=== PATIENT | female | born 1955 | race Caucasian/White ===

== ENCOUNTER 2018-07-14 17:21 | Inpatient (IN) | payer OTHER ==
[~2018-07-14] VITALS: Ht 157.5 cm; Wt 119.3 kg
--- NOTE | ~2018-07-14 | CON ---
[address] [address] CONSULTATION Name: LAQUITA BROOKS Room: [address] IN .R.#: [id number] Admission: 07/14/18 Attend Phys: Anita Luna Discharge: Date of : 55 Report #: [id number] THIS REPORT FOR: //name// CC: NEHEMIAH physician/PCP Srinivasan Hanson DO Danny Abdi DICTATED BY: Ethel Gutierrez [facility] DATE OF SERVICE: 07/16/2018 Please note at the time of this dictation, the patient was seen and physically examined by myself. REASON FOR CONSULTATION: Abnormal CT stranding in the second portion of the duodenum. HISTORY OF PRESENT ILLNESS: This is a 63-year-old female who presented to the Emergency Room with chief complaint of a groin abscess that she states she has had previously in the past and has been increasing in redness and swelling in the left groin. She became intolerable to this because it was very painful. She had been taking doxycycline as an outpatient, but failed. In further investigating of her symptoms, patient states that she has had some epigastric tenderness and some nausea, which she related all to her abscess. She also has a history of dysphagia, which she has been stretched in the past by [facility] probably 10-12 years ago. She denies anything currently getting stuck, but she does have some difficulty with swallowing and if she is very careful, but is feeling that is needing to be done as well. She denies any NSAID use at this time. She states she had a colonoscopy back in the 90s and was told she had diverticular disease and has not had one since. She states her bowels move daily, soft and formed without any issues. ALLERGIES: BACTRIM. MEDICATIONS: From home include her antibiotic and see her MAR. PAST MEDICAL HISTORY: Type 2 diabetes. 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 FAMILY HISTORY: Mother, uterine cancer. SOCIAL HISTORY: Denies any alcohol, tobacco or illegal drug use at this time. REVIEW OF SYSTEMS: Twelve-point review of systems [place] [address] CONSULTATION Name: LAQUITA BROOKS Room: [address] IN [facility]#: [id number] Admission: 07/14/18 Attend Phys: Anita Luna Discharge: Date of : 55 Report #: [id number] except what is mentioned in the HPI. PHYSICAL EXAMINATION: VITAL SIGNS: Temperature 36.3, pulse 62, respirations 20, blood pressure 130/63. HEART: Regular rate and rhythm. LUNGS: Clear. ABDOMEN: Soft, positive bowel sounds in all 4 quadrants with some slight epigastric tenderness noted to palpation. LABORATORY DATA: Hemoglobin was 12.1, white count is 15, platelets 242,000. GFR is 56. Sodium is a little low at 129 and hemoglobin A1c is 11.8. CT showed some duodenitis or inflammation and stranding in the second portion of the duodenum, otherwise negative. Ultrasound of the abdomen showed fatty liver. IMPRESSION: 1. Nausea. 2. Epigastric pain. 3. Abnormal CT in the second portion of the small intestine. 4. Dysphagia. 5. Leukocytosis. 6. Fatty liver disease. 7. Family history, mother, uterine cancer. 8. History of atrial fibrillation. PLAN: 1. EGD tomorrow with Dr. Schwartz. 2. We will need to hold her aspirin in the a.m. 3. Further recommendations to be made after the procedure. 4. She will need an outpatient colonoscopy given her family history and she has not had one for 20+ years. Thank you for allowing us to participate in this patient's care. Please do not hesitate to call with any questions in regard to this consult. ADDENDUM: I have personally seen and examined the patient and reviewed labs and imaging. The patient with history of nausea, epigastric pain and imaging suggestive of inflammation and thickening of the second portion of the duodenum, who also complains of dysphagia. We will consider upper endoscopy to further evaluate the second portion of the duodenum and address her dysphagia. If her symptoms of nausea and vomiting persist, we will consider a gastric emptying [place] [address] CONSULTATION Name: LAQUITA BROOKS Room: [address] IN [facility]#: [id number] Admission: 07/14/18 Attend Phys: Anita Luna Discharge: Date of : 55 Report #: [id number] patient has long history of diabetes. We will make further recommendation based on finding. By: 1152 0022Ck Schwartz MD /nt
--- NOTE | ~2018-07-14 | PROC ---
[facility] [address] [place] [address] PROCEDURE REPORT Name: LAQUITA BROOKS Room: [address] IN [facility]#: [id number] Admission: 07/14/18 Attend Phys: Anita Luna Discharge: Date of : 55 Report #: [id number] THIS REPORT FOR: //name// For GI report, Please see Provation report in Perceptive 7 content. By: 0826Medical Records Staff RAGINI /LENORE
[2018-07-14 17:32] VITALS: BP 142/89
[2018-07-14] MEDS ORDERED: TRAZODONE HCL50 MG PO (17:35)
[2018-07-14] MEDS ORDERED: ZOLOFT25 MG PO (17:36)
[2018-07-14] MEDS ORDERED: ZOCOR20 MG PO (17:36)
[2018-07-14 17:46] VITALS: BP 176/98
--- NOTE | 2018-07-14 18:20 | NUR ---
PATIENT PRESENTS WITH COMPLAINTS OF A LARGE ABSCESS TO LEFT UPPER THIGH NEAR THE VAGINAL AREA PT STATES IT BEGAN LAST WEEK SMALL AMOUNT OF DRAINAGE DENIES FEVER BUT HAS A LOSS OF APPETITE AND HASN'T EATEN IN SEVERAL DAYS
[2018-07-14 19:14] LABS: HEMOGLOBIN 15.1 gm/dL (12.0-15.0); MCH 28.8 pg (26.0-34.0); MCHC 33.6 g/dL (28.0-37.0); MCV 85.8 fL (80.0-100.0); MPV 10.4 fl. (7.2-11.1); NUCLEATED RBCS 0 /100WBC; PLATELET COUNT* 231 thou/uL (150-400); RBC 5.25 mil/uL (4.20-5.00); RDW-CV 12.6 % (10.5-14.5); WBC 16.1 thou/uL (4.0-11.0)
[2018-07-14 19:26] LABS: CALCIUM 9.5 mg/dL (8.5-10.1); CREATININE 0.5 mg/dL (0.6-1.3); POTASSIUM 4.8 mmol/L (3.5-5.1)
[2018-07-14 19:31] LABS: ALBUMIN 2.7 g/dL (3.4-5.0); TOTAL BILIRUBIN 0.7 mg/dL (<0.1-1.0); TOTAL PROTEIN 8.3 g/dL (6.4-8.2)
[2018-07-14 19:47] VITALS: BP 176/98
[2018-07-14 20:00] VITALS: BP 162/81
--- NOTE | 2018-07-14 20:00 | NUR ---
PT ADMITTED TO FLOOR FROM ER PER CART ACCOMPANIED BY ER STAFF WITH BELONGINGS. AMBULATES FROM CART TO BED WITH SBA. ORIENTED TO ROOM AND CALL LITE. HISTORY OBTAINED AND ASSESSMENT PERFORMED, SEE ADMIT NOTES. PT CO L GROIN AND THIGH PAIN SHOOTING OCC UP INTO ABDOMEN AT 6/10 INTERMITTENTLY. LWRIST IVF PLACED ON PUMP FOR INFUSION. PT REMAINS NPO FOR ABD CT, CT NOTIFIED AND STATES THEY ARE BACKED UP BUT PLAN ON DOING IT TONIGHT, PT AWARE AND VERBALIZES UNDERSTANDING OF NPO. CALL LITE IN EASY REACH, BED ALARM ON FOR SAFETY. WILL CONTINUE TO MONITOR AND PROVIDE CARES NEEDED.
[2018-07-14 20:33] LABS: ABSOLUTE BASOPHILS 0.2 thou/uL (0.0-0.2); ABSOLUTE LYMPHOCYTES 1.9 thou/uL (0.8-5.3); ABSOLUTE MONOCYTES 1.1 thou/uL (0.0-1.2); ABSOLUTE NEUTROPHILS 12.9 thou/uL (1.6-8.1)
[2018-07-14 20:35] LABS: PLATELET ESTIMATE ADEQUATE
[2018-07-15 04:00] VITALS: BP 150/75
[2018-07-15 05:03] LABS: URINE BLOOD NEGATIVE (Negative); URINE CLARITY SL CLOUDY; URINE COLOR YELLOW; URINE GLUCOSE-RANDOM 2+ (Negative); URINE LEUKOCYTES-REFLEX NEGATIVE (Negative); URINE NITRITE-REFLEX NEGATIVE (Negative); URINE PROTEIN TRACE (Negative); URINE SPECIFIC GRAVITY >= 1.030 (1.005-1.030)
[2018-07-15 05:04] LABS: ICTOTEST (BILI CONFIRMATORY) Negative (Negative); URINE BILIRUBIN 2+ (Negative); URINE KETONES 3+ (Negative)
--- NOTE | 2018-07-15 05:24 | NUR ---
NEW ADMIT THIS SHIFT. AOX4, ABLE TO USE CALL LITE AND MAKE NEEDS KNOWN. UP WITH SBA TO BR TO VOID OVERNIGHT, UA SENT TO LAB. LWRIST IVF INFUSING PER PUMP, ABX GIVEN. RECEIVING ZOFRAN FOR NAUSEA WITH FAIR RESULTS. DRSG INTACT O L GROIN I&D SITE, PICS TAKEN. ACCUCHECK 220, PT NPO AWAITING CT ABDOMEN, ORAL SWABS GIVEN FOR COMFORT. VSS. ABLE TO USE CALL LITE AND MAKE NEEDS KNOWN.
[2018-07-15 09:48] VITALS: BP 147/79
--- NOTE | 2018-07-15 10:29 | EKG ---
[place] [address] ELECTROCARDIOGRAM REPORT Name: LAQUITA BROOKS Room: [address] ADM IN [facility]#: [id number] Admission: 07/14/18 Attend Phys: Anita Luna Discharge: Date of : 55 Report #: [id number] THIS REPORT FOR: //name// [facility] ED Test Date: 2018-07-14 Test Time: 19:23:17 Pat Name: LAQUITA CECILIA Department: Room: [facility] Gender: F Blending Supervisor: KAT : 1955 Requested By: Shira Slater Order Number: [id number] MD: Jerson Banegas Measurements Intervals [place] Rate: 90 P: 23 MO: 133 QRS: 2 QRSD: 81 T: 46 QT: 338 QTc: 414 Interpretive Statements Sinus tachycardia Atrial premature complexes in couplets Probable left atrial enlargement Left ventricular hypertrophy Baseline wander in lead(s) V4 No previous ECG available for comparison Electronically Signed On 07-15-2018 10:29:31 CDT by Jerson Banegas [email or web address] <ELECTRONICALLY SIGNED> By: Jerson Banegas MD, FACC 07/15/18 1029 1923 1923 Jerson Banegas MD, [facility] /EPI
--- NOTE | 2018-07-15 10:56 | NUR ---
PATIENT IS ALERT AND ORIENTED TODAY, PLEASANT BUT ANXIOUS AT TINES. COMPLAINTS OF PAIN IN STOMACH, GROIN, AND LEG. ORAL PAIN MEDICATIONS GIVEN AND IT WORKED WELL. EXPLAINED TO PATIENT THAT ORAL NEDICATIONS WILL BE GIVEN FIRST BEFORE IV. PATIENT IS BEING TRANSFERRED TO TELE DUE TO TACHYCARDIA AND IRREGULAR HEART RATE PER PROVIDER. PATIENT LEFT VIA WHEEL CHAIR TO TELE, REPORT CALLED AND GIVEN TO NURSE TAKING PATIENT.
--- NOTE | 2018-07-15 12:41 | NUR ---
RECEIVED REPORT FROM [facility] AND ASSUMED CARE OF PT AT 1100.PT IS A/OX4.TRACING AFIB ON THE MONITOR.IV BOLOUS CARDIZEIM AND DRIP STARTED AND TITRATED PER DR ORDER.EKG DONE.CONTINIOUS VS MONITORED.CELLULITIES PRESENT ON GROIN AREA.IV ANTIBIOTIC AND FLUIDS GIVEN PER ORDER.NPO FOR ABD US.ON RA.ID AND CARDIOLOGY ON BOARD.CALL LIGHT AND FLL PRECAUTIONS IN PLACE .WILL CONTINUE TO MONITOR.
--- NOTE | 2018-07-15 13:41 | EKG ---
[place] [address] ELECTROCARDIOGRAM REPORT Name: LAQUITA BROOKS Room: [address] ADM IN [facility]#: [id number] Admission: 07/14/18 Attend Phys: Anita Luna Discharge: Date of : 55 Report #: [id number] THIS REPORT FOR: //name// [facility] Test Date: 2018-07-15 Test Time: 11:18:22 Pat Name: LAQUITA CECILIA Department: Room: [facility] Gender: F Billing Manager: [id number] : 1955 Requested By: Mally Cody Order Number: [id number] Shakira MD: Jerson Banegas Measurements Intervals [place] Rate: 150 P: WI: QRS: 2 QRSD: 82 T: QT: 289 QTc: 457 Interpretive Statements Atrial fibrillation LVH by voltage Nonspecific T abnormalities, lateral leads Baseline wander in lead(s) V5 Compared to ECG 07/14/2018 19:23:17 Sinus tachycardia no longer present Electronically Signed On 07-15-2018 13:40:57 CDT by Jerson Banegas [email or web address] <ELECTRONICALLY SIGNED> By: Jerson Banegas MD, [facility] 07/15/18 1340 1118 1118 Jerson Banegas MD, [facility] /EPI
--- NOTE | 2018-07-15 13:43 | EKG ---
[place] [address] ELECTROCARDIOGRAM REPORT Name: LAQUITA BROOKS Room: [address] ADM IN R.#: [id number] Admission: 07/14/18 Attend Phys: Anita Luna Discharge: Date of : 55 Report #: [id number] THIS REPORT FOR: //name// [facility] Test Date: 2018-07-15 Test Time: 13:14:42 Pat Name: LAQUITA CECILIA Department: Room: [address] Gender: F Signwriter: KITA : 1955 Requested By: Mally Cody Order Number: [id number] Shakira MD: Jerson Banegas Measurements Intervals [place] Rate: 164 P: [place]: QRS: -9 QRSD: 118 T: 259 QT: 262 QTc: 433 Interpretive Statements Atrial flutter with rapid V-rate nonspecific t wave changes Electronically Signed On 07-15-2018 13:43:19 CDT by Jerson Banegas [email or web address] <ELECTRONICALLY SIGNED> By: Jerson Banegas MD, [facility] 07/15/18 1343 1314 Jerson Banegas MD, FACC /EPI
--- NOTE | 2018-07-15 14:13 | NUR ---
Nutrition: Consult for "DM diet." RD went to visit with pt, but pt transferred to room 208. Wt: 221#. Per chart review, pt is noncompliant, cellulitis on thigh. BG 200s, alb 2.7, prealb 7.9. Currently NPO for abd US. RX: IV ABX, SSI. Mild risk. Will follow per protocol.
--- NOTE | 2018-07-15 15:31 | EKG ---
[place] [address] ELECTROCARDIOGRAM REPORT Name: LAQUITA BROOKS Room: [address] ADM IN .R.#: [id number] Admission: 07/14/18 Attend Phys: Anita Luna Discharge: Date of : 55 Report #: [id number] THIS REPORT FOR: //name// [facility] Test Date: 2018-07-15 Test Time: 13:17:23 Pat Name: LAQUITA CECILIA Department: Room: [address] Gender: F Sole Trimmer: KITA : 1955 Requested By: Danny Abdi Order Number: [id number] Reading MD: Jerson Banegas Measurements Intervals [place] Rate: 165 P: 0 WI: QRS: -3 QRSD: 114 T: 264 QT: 258 QTc: 428 Interpretive Statements atrial flutter Abnormal R-wave progression, late transition Nonspecific T abnormalities, lateral leads Compared to ECG 07/15/2018 13:14:42 T-wave abnormality still present Electronically Signed On 07-15-2018 15:31:04 CDT by Jerson Banegas [email or web address] <ELECTRONICALLY SIGNED> By: Jerson Banegas MD, [facility] 07/15/18 1531 1317 1317 Jerson Banegas MD, [facility] /EPI
--- NOTE | 2018-07-15 17:01 | NUR ---
VSS.PT CONVERTED TO SR FROM AFIB.EKG TAKEN ,DR NOTIFIED.CARDIZEM DRIP STOPPED.PT IS A/OX4.US ABD COMPLETED.I & D OF GROIN ABCESS DONE BY SURGERY TEAM.ON RA.IV PATENT AND SALINE LOCKED.HRLY ROUNDING COMPLETED.WILL CONTINUE TO MONITOR.
[2018-07-15 17:27] VITALS: BP 109/60
--- NOTE | 2018-07-15 18:29 | NUR ---
I have reviewed the documentation by REG PERALTA from 0 to 1828 and I concur with it.
[2018-07-15 20:00] VITALS: BP 143/67
[2018-07-16] VITALS (8 sets, daily range): BP systolic 91–153; BP diastolic 47–71
--- NOTE | 2018-07-16 00:15 | NUR ---
ASSUMED PT CARE @ 1930. PT GIVEN PAIN AND INFLAMMATION MEDICATION FOR LEFT GROIN PAIN-EFFECTIVE. PT CURRENTLY RESTING WITH EYES CLOSED. TRACIG RATE CONTROLLED AFIB ON THE MOINTOR. CALL LIGHT IN REACH. HOURLY ROUNDING FOR SAFETY.
[2018-07-16 02:09] LABS: GLYCOHEMOGLOBIN (HGB A1C) 11.8 % (4.8-5.6)
[2018-07-16 05:32] LABS: HEMATOCRIT 36.7 % (37.0-47.0); MCH 28.4 pg (26.0-34.0); MPV 11.4 fl. (7.2-11.1); RBC 4.27 mil/uL (4.20-5.00); RDW-CV 12.7 % (10.5-14.5)
[2018-07-16 05:44] LABS: HEMOGLOBIN 12.1 gm/dL (12.0-15.0)
[2018-07-16 06:07] LABS: CALCIUM 8.7 mg/dL (8.5-10.1); MAGNESIUM 1.8 mg/dL (1.8-2.4); POTASSIUM 3.9 mmol/L (3.5-5.1)
--- NOTE | 2018-07-16 07:20 | NUR ---
CHANGE OF SHIFT BEDSIDE REPORT GIVEN PATIENT SEEN AT BEDSIDE, IN BED ASLEEP ASSUMED PATIENT CARE
--- NOTE | 2018-07-16 07:53 | CON ---
[address] [address] CONSULTATION Name: LAQUITA BROOKS Room: [address] IN .R.#: [id number] Admission: 07/14/18 Attend Phys: Anita Luna Discharge: Date of : 55 Report #: [id number] THIS REPORT FOR: //name// CC: FAM physician/PCP Danny Abdi DATE OF SERVICE: 07/15/2018 ATTENDING PHYSICIAN: Danny Abdi DO. REASON FOR EVALUATION: Left inguinal proximal medial thigh erythrodermic inflammatory eruption with concern about skin and soft tissue infection with abscess. HISTORY OF PRESENT ILLNESS: Chart reviewed, patient examined. This is a 63-year-old woman with diabetes mellitus type 2, who attributes increasing pain and associated rash with inability to keep her left inguinal site clean and dry. She notes she gets frequent skin and soft tissue infection with abscesses at these sites bilaterally. She has diabetes mellitus. This apparently is not controlled well, has had increasing pain. She admits of fevers that "broke." She has had some anorexia with poor p.o. intake. I think she has not eaten really in 6 days. No diarrhea, although she has experienced some nausea. Evaluation noted lactic acid to be elevated at 2.1, repeat was 1.0. Urinalysis showed proteinuria, trace with ketones. CT abdomen and pelvis showed stranding and thickening of the left adductor muscle region margin of the study, stranding on the second portion of duodenum, question of a duodenitis. She was started empirically on therapy with ceftriaxone, vancomycin, did aspirate site. Cultures pending as are blood cultures. She is mildly encephalopathic. Denies significant pulmonary complaints. ALLERGIES: LISTED TO BACTRIM. CURRENT MEDICATIONS: Include enoxaparin, insulin, pantoprazole, tramadol, ceftriaxone, vancomycin, ketorolac, p.r.n. analgesics and antiemetics. 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 SOCIAL HISTORY: Nonsmoker, no ethanol. FAMILY HISTORY: Noncontributory. REVIEW OF SYSTEMS: A 10-point review of systems otherwise unremarkable with the exception noted above in the [place] [address] CONSULTATION Name: LAQUITA BROOKS Room: [address]#: [id number] Admission: 07/14/18 Attend Phys: Anita Luna Discharge: Date of : 55 Report #: [id number] PHYSICAL EXAMINATION: GENERAL: She is in ehxv-zf-icmtigom distress. She is alert. She appears to be somewhat chronically ill, undernourished. VITAL SIGNS: Temperature 98.3, pulse 74, respirations 16, blood pressure 147/79. SKIN: Warm, dry, no rashes. HEENT: Normocephalic. Extraocular muscles intact. NECK: Supple. LUNGS: Diminished, otherwise clear breath sounds. HEART: Irregular, borderline tachycardic. I do not appreciate a murmur. ABDOMEN: Soft, mildly distended. She does have erythrodermic type eruption in the left inguinal site. She is exquisitely tender with at least moderate induration over the medial proximal thigh extending on to the perineal site. LABORATORY DATA: CT as noted above. TSH of 0.590. Prealbumin is 7.9. CBC: White count of 16.1, H and H 15.1 and 45.0, platelets of 231. Electrolytes: Sodium 131, potassium 4.8, chloride 94, bicarbonate is 22, anion gap of 15, BUN and creatinine 14 and 0.5, glucose of 269, albumin of 2.7, total protein of 8.3. LFTs unremarkable. ASSESSMENT: Left inguinal skin and soft tissue infection with apparent abscess, utilize some warm moist heat, try to localize it. Await culture results to have blood samples as well as aspiration from what is described as an abscess and see how she does clinically over the next 24-48 hours. Adjust antimicrobial therapy as dictated. <ELECTRONICALLY SIGNED> By: Ramirez Martin MD 07/16/18 0753 1148 0007Jolarry Martin MD /nt
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
--- NOTE | 2018-07-16 16:43 | 2DMMODE ---
[place] [address] 2 D/M-MODE ECHOCARDIOGRAM Name: LAQUITA BROOKS Room: [address] IN [facility]#: [id number] Admission: 07/14/18 Attend Phys: Danny Abdi Discharge: Date of : 55 Date of Service: 07/16/18 1643 Report #: [id number] THIS REPORT FOR: //name// APPROVED REPORT Study performed: 07/16/2018 10:31:26 EXAM: Comprehensive 2D, Doppler, and color-flow Echocardiogram Patient Location: In-Patient Room #: [facility] Status: routine BSA: 1.99 HR: 73 bpm BP: 130/63 mmHg Rhythm: NSR Other Information Study Quality: Good Indications Atrial Fibrillation 2D Dimensions IVSd: 11.28 (7-11mm) LVOT Diam: 18.65 (18-24mm) LVDd: 46.13 mm PWd: 9.52 (7-11mm) Ascending Ao: 31.47 (22-36mm) LVDs: 28.82 (25-40mm) Aortic Root: 27.96 mm Volumes Left Atrial Volume (Systole) LA ESV Index: 34.20 mL/m2 Aortic Valve AoV Peak Ashish.: 1.49 m/s AO Peak Gr.: 8.89 mmHg LVOT Max P.86 mmHg AO Mean Gr.: 4.42 mmHg LVOT Mean P.17 mmHg LVOT Max V: 1.10 m/s AO V2 VTI: 24.95 cm LVOT Mean V: 0.66 m/s DANIA (VTI): 2.60 cm2 LVOT V1 VTI: 23.71 cm Mitral Valve E/A Ratio: 1.35 MV Decel. Time: 209.27 ms MV E Max Ashish.: 1.11 m/[place] [address] 2 D/M-MODE ECHOCARDIOGRAM Name: LAQUITA BROOKS Room: [address] IN .R.#: [id number] Admission: 07/14/18 Attend Phys: Danny Abdi Discharge: Date of : 55 Date of Service: 07/16/18 1643 Report #: [id number] MV PHT: 60.69 ms MVA (PHT): 3.63 cm2 TDI E/Lateral E': 12.33 E/Medial E': 12.33 Medial E' Ashish.: 0.09 m/s Lateral E' Ashish.: 0.09 m/s Pulmonary Valve PV Peak Ashish.: 1.09 m/s PV Peak Gr.: 4.79 mmHg Tricuspid Valve RAP Estimate: 5.00 mmHg TR Peak Gr.: 26.69 mmHg RVSP: 31.00 mmHg PA Pressure: 31.00 mmHg Left Ventricle The left ventricle is normal size. There is normal LV segmental wall motion. There is normal left ventricular wall thickness. Left ventricular systolic function is normal. LVEF is 55-60%. Transmitral Doppler flow pattern suggests restrictive physiology. Right Ventricle The right ventricle is normal size. The right ventricular systolic function is normal. Atria Left atrium is moderately dilated. Right atrium is mildly dilated. Aortic Valve Mild aortic valve sclerosis. No aortic regurgitation is present. There is no aortic valvular stenosis. Mitral Valve There is mitral annular calcification. Mild mitral regurgitation. No evidence of mitral valve stenosis. Tricuspid Valve The tricuspid valve is normal in structure. Mild tricuspid regurgitation. Mild pulmonary hypertension. Pulmonic Valve The pulmonary valve is normal in structure. There is no pulmonic [place] [address] 2 D/M-MODE ECHOCARDIOGRAM Name: LAQUITA BROOKS Room: [address]#: [id number] Admission: 07/14/18 Attend Phys: Danny Abdi Discharge: Date of : 55 Date of Service: 07/16/18 1643 Report #: [id number] Great Vessels The aortic root is normal in size. IVC is normal in size and collapses >50% with inspiration. Pericardium There is no pericardial effusion. <Conclusion> The left ventricle is normal size. There is normal left ventricular wall thickness. Left ventricular systolic function is normal. LVEF is 55-60%. Transmitral Doppler flow pattern suggests restrictive physiology. Left atrium is moderately dilated. Right atrium is mildly dilated. Mild mitral regurgitation. Mild tricuspid regurgitation. Mild pulmonary hypertension. IVC is normal in size and collapses >50% with inspiration. <ELECTRONICALLY SIGNED> By: Faustino Costa MD, FACC 07/16/18 1643 164 1643 Faustino Costa MD, FACC /INF
--- NOTE | 2018-07-16 16:59 | EKG ---
[place] [address] ELECTROCARDIOGRAM REPORT Name: LAQUITA BROOKS Room: [address] ADM IN .R.#: [id number] Admission: 07/14/18 Attend Phys: Anita Luna Discharge: Date of : 55 Report #: [id number] THIS REPORT FOR: //name// [facility] Test Date: 2018-07-15 Test Time: 15:54:44 Pat Name: LAQUITA CECILIA Department: Room: [address] Gender: F Video Production Specialist: [id number] : 1955 Requested By: Danny Abdi Order Number: [id number] Shakira MD: Faustino Costa Measurements Intervals [place] Rate: 65 P: 11 WA: 140 QRS: 7 QRSD: 86 T: 17 QT: 435 QTc: 453 Interpretive Statements Sinus rhythm Compared to ECG 07/15/2018 13:17:23 Atrial flutter no longer present T-wave abnormality no longer present Electronically Signed On 07-16-2018 16:59:42 CDT by Faustino Costa [email or web address] <ELECTRONICALLY SIGNED> By: Faustino Costa MD, FACC 07/16/18 1659 1554 1554 Faustino Costa MD, [facility] /EPI
[2018-07-17 04:30] VITALS: BP 103/50
--- NOTE | 2018-07-17 04:48 | NUR ---
ASSUMED PT CARE @ 1930. DR CHAVEZ ON UNIT 2 BEGIONNING OF SHIFT. WAS NOTIFIED PT'S SODIUM WAS LOW, BP DROPS DURING THE NIGHT, AND NPO AFTER MIDNIGHT. NS STARTED. PAIN MEDS GIVEN. FOR LEFT GROIN PAIN EFFECTIVE. PT ABLE TO FALL ASLEEP. LEFT GROIN DRESSING DRY AND INACT. CALL LIGHT IN REACH. HOURLY ROUNDING FOR SAFETY.
[2018-07-17 05:41] LABS: HEMATOCRIT 38.7 % (37.0-47.0); HEMOGLOBIN 12.6 gm/dL (12.0-15.0); MCH 28.1 pg (26.0-34.0); MCHC 32.5 g/dL (28.0-37.0); MCV 86.6 fL (80.0-100.0); MPV 11.7 fl. (7.2-11.1); RBC 4.47 mil/uL (4.20-5.00); RDW-CV 12.7 % (10.5-14.5); WBC 13.2 thou/uL (4.0-11.0)
[2018-07-17 05:59] LABS: CALCIUM 8.7 mg/dL (8.5-10.1); POTASSIUM 4.3 mmol/L (3.5-5.1)
[2018-07-17 07:30] VITALS: BP 130/73
[2018-07-17 08:25] VITALS: BP 130/73
--- NOTE | 2018-07-17 09:04 | NUR ---
RECEIVED PT CARE 0700. SHE IS AWAKE/ALERT AND ORIENTED X4. VSS. TRANSMISSION LINE ENGINEER TRACING SR. NPO FOR EGD TODAY. CONSENTS SIGNED AND ON FRONT OF PATIENTS CHART. PRE-OP CHECK LIST ON FRONT OF CHART. PATIENT DENIES ANY SOA. O2 SAT 92% ON ROOM AIR. C/O 10/10 LEFT GROIN PAIN. PRN PAIN MEDICATION GIVEN WITH GOOD RELIEF. SHE IS UP STANDBY ASSIST IN ROOM. GAIT IS STEADY. AM ASSESSMENT CHARTED. MEDS GIVEN PER MAR. CALL LIGHT WITHIN REACH. WILL CONTINUE TO MONITOR.
--- NOTE | 2018-07-17 10:36 | EKG ---
[place] [address] ELECTROCARDIOGRAM REPORT Name: LAQUITA BROOKS Room: [address] ADM IN .R.#: [id number] Admission: 07/14/18 Attend Phys: Anita Luna Discharge: Date of : 55 Report #: [id number] THIS REPORT FOR: //name// [facility] Test Date: 2018-07-17 Test Time: 04:56:43 Pat Name: LAQUITA CECILIA Department: Room: [address] Gender: F Technical Support Technician: : 1955 Requested By: Jerson Banegas Order Number: [id number] Shakira MD: Austin Dalton Measurements Intervals [place] Rate: 63 P: 20 NE: 144 QRS: 30 QRSD: 88 T: 13 QT: 445 QTc: 456 Interpretive Statements Sinus rhythm Compared to ECG 07/15/2018 15:54:44 No significant changes Electronically Signed On 07-17-2018 10:36:00 CDT by Austin Dalton [email or web address] <ELECTRONICALLY SIGNED> By: Austin Dalton MD, [facility] 07/17/18 1036 0456 0456 Austin Dalton MD, FACC /EPI
[2018-07-17 14:35] VITALS: BP 150/78
[2018-07-17 16:00] VITALS: BP 117/56
[2018-07-17 20:00] VITALS: BP 126/69
[2018-07-18] VITALS: BP 164/89
--- NOTE | 2018-07-18 02:29 | NUR ---
PT FINISHED BOWEL PREP. LARGE AMOUNT OF DRAINAGE FROM LEFT GROIN CYST. PAIN MEDICATION GIVEN. TRACING SR ON MONITOR. PT CURRENTLY RESTING IN BED W EYES CLOSED. CALL LIGHT IN REACH. HOURLY ROUNDING FOR SAFETY.
[2018-07-18 05:40] LABS: HEMOGLOBIN 12.3 gm/dL (12.0-15.0); MCH 28.7 pg (26.0-34.0); MCHC 33.2 g/dL (28.0-37.0); MCV 86.4 fL (80.0-100.0); MPV 10.2 fl. (7.2-11.1); RBC 4.28 mil/uL (4.20-5.00); RDW-CV 12.6 % (10.5-14.5); WBC 12.6 thou/uL (4.0-11.0)
[2018-07-18 06:02] LABS: CALCIUM 8.9 mg/dL (8.5-10.1); CREATININE 0.8 mg/dL (0.6-1.3); MAGNESIUM 1.8 mg/dL (1.8-2.4); POTASSIUM 3.9 mmol/L (3.5-5.1)
[2018-07-18 08:00] VITALS: BP 145/67
--- NOTE | 2018-07-18 10:57 | EKG ---
[place] [address] ELECTROCARDIOGRAM REPORT Name: LAQUITA BROOKS Room: [address] ADM IN .R.#: [id number] Admission: 07/14/18 Attend Phys: Anita Luna Discharge: Date of : 55 Report #: [id number] THIS REPORT FOR: //name// [facility] Test Date: 2018-07-18 Test Time: 08:24:31 Pat Name: LAQUITA BROOKS Department: Room: [address] Gender: F Director Of Campus Recreation: : 1955 Requested By: Austin Dalton Order Number: [id number] Shakira MD: Edwin Dos Santos Measurements Intervals [place] Rate: 73 P: 49 MD: 135 QRS: 38 QRSD: 86 T: 0 QT: 386 QTc: 426 Interpretive Statements Sinus rhythm Baseline wander in lead(s) V1 Compared to ECG 07/17/2018 04:56:43 No significant changes Electronically Signed On 07-18-2018 10:56:52 CDT by Edwin Dos Santos [email or web address] <ELECTRONICALLY SIGNED> By: Edwin Dos Santos MD, FACC 07/18/18 1056 Edwin Dos Santos MD, [facility] /EPI
[2018-07-18 11:05] VITALS: BP 145/67
[2018-07-18 11:26] VITALS: BP 116/67
--- NOTE | 2018-07-18 11:32 | NUR ---
RECEIVED REPORT AND ASSUMED CARE OF PT AT 0735.A/OX4.TRACING SR ON THE MONITOR.ON RA.IV PATENT WITH IV ANTIBIOTICS INFUSING PER ORDER.NPO FOR COLONOSCOPY.BLOOD SUGAR MANAGED BY INSULIN PER ORDER.PT IS SITTING ON THE CHAIR.COMPLAINTS OF PAIN ,MANAGED BY MEDS.NO SKIN ISSUES.CALL LIGHT AND FALL PRECAUTIONS IN PLACE.WILL CONTINUE TO MONITOR.
--- NOTE | 2018-07-18 18:00 | NUR ---
VSS.PT IS A/OX4.TRCING SR ON THE MONITOR.IV PATENT WITH IV ANTIBIOTIC INFUSING.COLONOSCOPY COMPLETED WITH ONE POLYP REMOVAL.GI SIGNED OFF.REGULAR DIET RESUMED.WOUND CLEANED AND PACKED AGAIN AFTER PT TOOK SHOWER.BLOOD SUGAR MANAGED PER PROTOCOL.COMPLAINTS OF GROIN AND BACK PAIN.MANAGED WITH MEDS.HRLY ROUNDING COMPLETED.WILL CONTINUE TO MONITOR.
[2018-07-18 19:30] VITALS: BP 149/71
[2018-07-19 00:08] VITALS: BP 119/59
--- NOTE | 2018-07-19 01:35 | NUR ---
ASSUMED CARE OF PT 1899. PT IS ALERT AND ORIENTED. VSS. PERRLA. PT REPORTS ONGOING PAIN IN BACK AND LEFT GROIN. PT IS GETTING HYDROCODONE AND FENTANYL FOR PAIN. PT WENT INTO A FIB AT 1941. RATE VARIED FROM [address] AGUIRRE NOTIFIED. PT WAS GIVEN EXTRA SOTOLOL PER DR AGUIRRE. PT CONVERTED BACK INTO SINUS RYTHM AT 2144. DOCUMENTATION IS IN THE CHART. PT IS SLEEPING QUIETLY IN BED. RESPIRATIONS ARE EVEN AND NONLABORED. WILL CONTINUE TO MONITOR PT.
[2018-07-19 04:21] VITALS: BP 120/66
[2018-07-19 08:13] VITALS: BP 150/65
--- NOTE | 2018-07-19 09:00 | NUR ---
REC'D REPORT FROM NOC RN, ASSUMED CARE OF PATIENT APPROX 0730. A&OX4, ABLE TO COMMUNICATE NEEDS TO STAFF. ASSESSMENT COMPLETE, VS OBTAINED. TELEVISION SCRIPT WRITER IN PLACE, SR. O2 SATS 92% RA. SITTING IN HIGH FOWLERS, WITH LEGS BENT. PATIENT STATES, "I NEED TO STRETCH MY BACK. IT HURTS. CAN YOU HELP ME MOVE MY LEGS?" ASSISTED PATIENT WITH GENTLE STRETCHING. STATES THAT HER BACK PAIN HAS BEEN PARTIALLY RELIEVED WITH THIS STRETCHING. CALL LIGHT WITHIN REACH. HOURLY ROUNDING FOR SAFETY AND PATIENT NEEDS.
--- NOTE | 2018-07-19 11:05 | NUR ---
Pt continues to plan to return home at sc. No needs anticipated.
--- NOTE | 2018-07-19 11:58 | NUR ---
REC'D CALL FROM SEAN DIETITIAN, WHO STATES PATIENT SHOULD BE RECEIVING A CARB CONTROL DIET. ORDERS FOR DIET TO BE CHANGED PER DIETARY.
[2018-07-19 12:36] VITALS: BP 152/79
[2018-07-19 15:39] LABS: ABSOLUTE EOSINOPHILS 0.1 thou/uL (0.0-0.7); ABSOLUTE LYMPHOCYTES 1.2 thou/uL (0.8-5.3); ABSOLUTE MONOCYTES 1.7 thou/uL (0.0-1.2); ABSOLUTE NEUTROPHILS 9.8 thou/uL (1.6-8.1); BASOPHILS 0.2 %; EOSINOPHILS 0.6 %; HEMATOCRIT 38.6 % (37.0-47.0); LYMPHOCYTES 9.7 %; MCH 28.9 pg (26.0-34.0); MCHC 33.6 g/dL (28.0-37.0); MCV 86.1 fL (80.0-100.0); MPV 9.7 fl. (7.2-11.1); NUCLEATED RBCS 0 /100WBC; PLATELET COUNT* 259 thou/uL (150-400); POLYS 76.5 %; RBC 4.48 mil/uL (4.20-5.00); RDW-CV 12.8 % (10.5-14.5); WBC 12.8 thou/uL (4.0-11.0)
[2018-07-19 15:44] LABS: CREATININE 0.8 mg/dL (0.6-1.3); POTASSIUM 4.2 mmol/L (3.5-5.1)
--- NOTE | 2018-07-19 16:06 | PATH ---
[address] [address] PATHOLOGY RPT PROCEDURE Name: MEGHAN BROOKS Room: [address] IN M.R.#: [id number] Admission: 07/14/18 Date of : 55 Discharge: Report #: [id number] Path Case #: [id number] [facility] Accession Number: [id number] . 01 Material submitted: . PART A: duodenum - BIOPSY OF DUODENUM/DUODENAL ULCER PART B: stomach - BIOPSY OF STOMACH PART C: esophagus - DISTAL ESOPHAGUS R/O BARRETTS . 01 Clinical history: . None provided . 02 Diagnosis: A. Biopsy of duodenum/duodenal ulcer: - Non-specific active duodenitis with ulceration, negative for granulomas, viral inclusions and dysplasia/adenomatous change and malignancy. . B. Biopsy of stomach: - Mild chronic gastritis suggesting reactive gastropathy (chemical gastritis), negative for Helicobacter pylori organisms, granulomas and dysplasia. . C. Distal esophagus: - Benign esophageal and gastric/columnar types mucosa with moderate chronic and active inflammation compatible with reflux, negative for goblet cells/diagnostic Wilson's metaplasia, granulomas and dysplasia. ([place]/db; 07/19/2018) LBQ/07/19/2018 . 02 Comment: Special stain on B: H. pylori immuno . 02 Electronically signed: . Rubén Skaggs MD, Pathologist NPI- [id number] . 01 Gross description: . A. Received in formalin labeled "Meghan Brooks, biopsy duodenum/duodenal ulcer," are 4 segments of alfaro soft tissue measuring 0.9 x 0.6 x 0.2 cm in aggregate dimensions and ranging from 0.2 to 0.3 cm in maximum dimension. The specimen is submitted entirely in cassette A1. . B. Received in formalin labeled "Meghan Brooks, biopsy of stomach," are 4 segments of alfaro soft tissue measuring 0.9 x 0.8 x 0.6 cm in aggregate dimensions and ranging from 0.3 to 0.4 cm in maximum dimension. The specimen is submitted entirely in cassette B1. . C. Received in formalin labeled "Meghan Brooks, distal esophagus, [place] [address] PATHOLOGY RPT PROCEDURE Name: MEGHAN BROOKS Room: [address] IN [facility].#: [id number] Admission: 07/14/18 Date of : 55 Discharge: Report #: [id number] Path Case #: [id number] rule out Wilson's," are 2 segments of alfaro soft tissue measuring 0.7 x 0.2 x 0.2 cm in aggregate dimensions and ranging from 0.3 to 0.4 cm in maximum dimension. The specimen is submitted entirely in cassette C1. (TSD; 07/18/2018) TOB/TOB . 02 Pathologist provided ICD-10: K29.80, K26.9, K29.50, K21.9 . 02 CPT . 308757, 552643, 796229, T26261 Specimen Comment: A courtesy copy of this report has been sent to Specimen Comment: [phone], . Specimen Comment: Report sent to / DR GARCIA Performed at: [address], [place], [place] [id number] MD Srinivasan Crow MD Phone: [phone] Performed at: 02 [facility] [address], [place], [place] [id number] MD Rubén Skaggs MD Phone: [phone]
[2018-07-19 16:22] VITALS: BP 154/68
--- NOTE | 2018-07-19 18:00 | NUR ---
PATIENT C/O NAUSEA AND FEELING UNCOMFORTABLE. ONDANSETRON GIVEN WELL ACETAMINOPHEN FOR LOW GRADE FEVER. PATIENT STATES "THOSE MEDS DID HELP," UPON REASSESSMENT. PATIENT C/O LACK OF APPETITE FOR EVENING MEAL. EDUCATION GIVEN R/T ANTIBIOTIC SIDE EFFECTS. PATIENT AND SISTER VERBALIZED UNDERSTANDING. PATIENT IS DISTRESSED ABOUT HER JOB AND HER INSURANCE. ASKED MENDEL GELLER TO VISIT WITH PATIENT TO ASSIST HER WITH THIS PROCESS. PATIENT HAS BEEN UP TO BATHROOM X2 WITH THIS NURSE. AMBULATES WITH PAIN. ABLE TO AMBULATE ON OWN. CALL LIGHT IN REACH. HOURLY ROUNDING FOR SAFETY AND PATIENT NEEDS.
[2018-07-19 19:50] VITALS: BP 122/60
[2018-07-20] VITALS: BP 113/52
--- NOTE | 2018-07-20 03:38 | NUR ---
RECIEVED REPORT AND ASSUMED CARE AT 1900. CLAM DIGGER IN PLACE. VITAL SIGNS ARE STABLE. PT UP WITH ASSIST X 1. PT DENIES ANY PAIN AT THIS TIME. ASSESSMENT COMPLETED DISCUSSED PLAN OF CARE AND PT UNDERSTANDS. BED LOCKED AND CALL LIGHT WITHIN REACH. FALL PRECAUTIONS IN PLACE. HOURLY ROUNDING DONE AND ALL NEEDS MET. NURSING WILL CONTINUE TO MONITOR.
[2018-07-20 04:00] VITALS: BP 111/53
[2018-07-20 05:46] LABS: HEMATOCRIT 35.1 % (37.0-47.0); HEMOGLOBIN 11.5 gm/dL (12.0-15.0); MCH 27.8 pg (26.0-34.0); MCHC 32.9 g/dL (28.0-37.0); MCV 84.6 fL (80.0-100.0); MPV 10.1 fl. (7.2-11.1); RBC 4.15 mil/uL (4.20-5.00); RDW-CV 12.8 % (10.5-14.5); WBC 11.4 thou/uL (4.0-11.0)
[2018-07-20 05:56] LABS: ALBUMIN 1.7 g/dL (3.4-5.0); CALCIUM 8.8 mg/dL (8.5-10.1); CREATININE 0.7 mg/dL (0.6-1.3); MAGNESIUM 1.6 mg/dL (1.8-2.4); POTASSIUM 3.8 mmol/L (3.5-5.1); TOTAL BILIRUBIN 0.3 mg/dL (<0.1-1.0); TOTAL PROTEIN 6.1 g/dL (6.4-8.2)
[2018-07-20 07:50] VITALS: BP 126/67
--- NOTE | 2018-07-20 10:45 | NUR ---
PT ALERT AND ORIENTED. TELE TRACKING NSR AND ALL VSS ON ROOM AIR. C/O LEFT GROIN AND BACK PAIN-MEDICATED PER EMAR. DENIES CP, SOA. LEFT GROIN DRESSING CHANGE BY THIS AM. SURROUNDING AREA WARM/RED. EDUCATED ON SAFETY AND PLAN OF CARE. PLEASE SEE ASSESSMENT FOR ADDITIONAL INFORMATION. WILL CONT TO MONITOR.
[2018-07-20 12:46] VITALS: BP 125/61
--- NOTE | 2018-07-20 14:49 | NUR ---
WAS ASKED TO SEE PT RE: INSURANCE CONCERNS. PT STATED HER SISTER TOOK ALL HER PAPERWORK HOME AND IS ASSISTING HER. PT IS HAVING TO SIGN BACK UP FOR ALL OF HER EMPLOYEE INSURANCE/BENEFITS THRU HER JOB. TOLD HER CM WOULD CHECK WITH HER AGAIN ON SUNDAY TO SEE IF SHE NEEDS ANY ASSIST
[2018-07-20 16:09] VITALS: BP 132/68
--- NOTE | 2018-07-20 16:36 | NUR ---
WOUND RE-PACKED AFTER SHOWER. PT TOLERATED WELL. WILL CONT TO MONITOR
[2018-07-20 19:50] VITALS: BP 136/62
[2018-07-21] VITALS: BP 138/68
--- NOTE | 2018-07-21 02:07 | NUR ---
RECIEVED REPORT AND ASSUMED CARE AT 1900. HOT FRAME TENDER IN PLACE. VITAL SIGNS STABLE. PT UP ADLIB. PT HAS SOME GROIN PAIN AND BACK PAIN AND REPOSITIONING HELPED MANAGE PAIN. ASSESSMENT COMPLETED DISCUSSED PLAN OF CARE AND PT UNDERSTANDS. BED LOCKED AND CALL LIGHT WITHIN REACH. FALL PRECAUTIONS IN PLACE. HOURLY ROUNDING DONE AND ALL NEEDS MET. NURSING WILL CONTINUE TO MONITOR.
[2018-07-21 04:00] VITALS: BP 129/69
[2018-07-21 07:45] VITALS: BP 135/67
[2018-07-21 12:08] VITALS: BP 130/61
--- NOTE | 2018-07-21 14:31 | NUR ---
PT ALERT AND ORIENTED. TELE TRACKING SR AND ALL VSS ON ROOM AIR. DENIES CP, SOA. C/O BACK/LEFT GROIN PAIN-MEDICATED PER EMAR. EDUCATED ON SAFETY AND PLAN OF CARE. PLEASE SEE ASSESSMENT FOR ADDITIONAL INFORMATION. WILL CONT TO MONITOR
[2018-07-21 16:30] VITALS: BP 128/70
[2018-07-21 20:00] VITALS: BP 143/72
--- NOTE | 2018-07-21 20:00 | NUR ---
RECEIVED REPORT AND ASSUMED CARE OF PT, ASSESSMENT COMPLETED. PT RESTING WITH EYES CLOSED, PT STATES NO FURTHER DIARRHEA SINCE ABOUT NOON. DRSG INTACT TO LT GROIN. CORPORATE STAFF ACCOUNTANT SHOWING SR. WILL CONT TO MONITOR AND ASSIST NEEDED.
[2018-07-22 00:20] VITALS: BP 149/76
[2018-07-22 04:00] VITALS: BP 139/70
[2018-07-22 05:30] LABS: HEMOGLOBIN 11.7 gm/dL (12.0-15.0); MCH 28.4 pg (26.0-34.0); MCHC 33.4 g/dL (28.0-37.0); MCV 85.1 fL (80.0-100.0); MPV 9.4 fl. (7.2-11.1); RBC 4.11 mil/uL (4.20-5.00); RDW-CV 12.6 % (10.5-14.5); WBC 8.7 thou/uL (4.0-11.0)
[2018-07-22 05:54] LABS: CALCIUM 8.3 mg/dL (8.5-10.1); CREATININE 0.7 mg/dL (0.6-1.3); MAGNESIUM 1.9 mg/dL (1.8-2.4); POTASSIUM 3.7 mmol/L (3.5-5.1)
--- NOTE | 2018-07-22 05:57 | NUR ---
SLEPT WELL TONIGHT. VERY TALKATIVE. C/O PAIN INTO BACK AND LT THIGH AREA WITH MOVEMENT. PO PAIN MED X1 GIVEN AND EFFECTIVE. ON 07/21 PT WOULD NOT ALLOW WEEKLY PICTURE DOCUMENTATION ON LT GROIN WOUND DUE TO DR ALREADY CHANGED DRSG FOR THE DAY. WILL ATTEMPT TO GET THIS AM WITH DR ROUNDING. TELEMETRY CONT TO SHOW SR TO SB. HS GOALS OF REST AND SAFETY ACHIEVED. HOURLY ROUNDING OBSERVED.
[2018-07-22 08:00] VITALS: BP 137/71
[2018-07-22 10:53] VITALS: BP 137/71
[2018-07-22 10:54] VITALS: BP 137/71
[2018-07-22] MEDS ORDERED: GLUCOTROL5 MG PO (11:39)
[2018-07-22] MEDS ORDERED: TRAMADOL 50 MG50 MG PO (11:39)
[2018-07-22] MEDS ORDERED: AUGMENTIN 875-1 EACH PO (11:39)
[2018-07-22] MEDS ORDERED: HYDROCODON-ACE1 EAC7 PO (11:39)
[2018-07-22] MEDS ORDERED: SORINE 80 MG TA80 M1 PO (11:39)
[2018-07-22] MEDS ORDERED: CARAFATE 1 GM TA1 G1 PO (11:39)
[2018-07-22] MEDS ORDERED: GLUCOPHAGE1000 MG PO (11:39)
[2018-07-22] MEDS ORDERED: PANTOPRAZOLE SO40 M1 PO (11:39)
--- NOTE | 2018-07-22 11:53 | NUR ---
Pt discharging to home today. Faxed HH orders to [facility].
[2018-07-22 12:00] VITALS: BP 143/69
[2018-07-22] MEDS ORDERED: DOXYCYCLINE 10100 MG PO (12:23)
[2018-07-22] MEDS ORDERED: SYNTHROID50 MCG PO (12:24)
--- NOTE | 2018-07-22 14:46 | NUR ---
ASSUMED PT CARE AT 0730, AOX4, SBA, O2 SAT ON 90'S RA. PT COMPLAINS OF L GROIN PAIN, BACK PAIN. PT FOR DISCHARGE TODAY. TRACING SR ON FLOOR NURSE. PT LAST BM 07/21/18, ABDOMEN SOFT ROUND, OBESE. PT FOR ACCU CHECK. PT L GROIN INCISION, CLEANSE, CHANGE PACKING. PT HAD BILATERAL FEET EDEMA. VSS, AM ASSESSMENT CHARTED. MEDS GIVEN PER MAR. HOURLY ROUNDING, CALL LIGHT WITHIN REACH. WILL CONTINUE TO MONITOR.
--- NOTE | 2018-07-22 19:09 | NUR ---
I HAVE REVIEWED AND AGREE WITH THE ASSESMENT AND NOTE OF MISAEL Iyer RN ON 07/22/18 RECIEVED DISCHARGE ORDERS. PT GIVEN DISCHARGE INSTRUCTIONS, SCRIPTS, INSTRUCTED TO FOLLOW UP WITH [facility]. PT VERBALIZED UNDERSTANDING. PT TO HAVE HH ON DC. INSTRUCTED THAT HH WILL CALL HER TO SET UP VISIT. PT COLLECTED ALL BELONGINGS. DISCHARGE VIA WC BY STAFF WITH FAMILY.
== END 2018-07-22 16:15 | disposition home health service (06) | DRG 580 ==
LOC: M.ERS 17:21 → M.2W 18:53 → M.TBA-ER 18:53 → M.ORTHSURG 19:47 → M.2W 07-15 11:01
PROVIDERS: Internal Medicine; Nurse Practitioner Family; ADMIT Internal Medicine
PROC: 0H9AXZZ Drainage of Inguinal Skin, External Approach (ICD-10-PCS; principal; 2018-07-14)
PROC: 0Y960ZZ Drainage of Left Inguinal Region, Open Approach (ICD-10-PCS; 2018-07-15)
PROC: 0DB68ZX Excision of Stomach, Via Natural or Artificial Opening Endoscopic, Diagnostic (ICD-10-PCS; 2018-07-17)
PROC: 0D758ZZ Dilation of Esophagus, Via Natural or Artificial Opening Endoscopic (ICD-10-PCS; 2018-07-17)
PROC: 0DB98ZX Excision of Duodenum, Via Natural or Artificial Opening Endoscopic, Diagnostic (ICD-10-PCS; 2018-07-17)
PROC: 0DB58ZX Excision of Esophagus, Via Natural or Artificial Opening Endoscopic, Diagnostic (ICD-10-PCS; 2018-07-17)
PROC: 0DBN8ZZ Excision of Sigmoid Colon, Via Natural or Artificial Opening Endoscopic (ICD-10-PCS; 2018-07-18)
PROC: 0DBN8ZX Excision of Sigmoid Colon, Via Natural or Artificial Opening Endoscopic, Diagnostic (ICD-10-PCS; 2018-07-18)
DX: L03.314 Cellulitis of groin (principal); Z68.42 Body mass index [BMI] 45.0-49.9, adult; L03.116 Cellulitis of left lower limb; E87.1 Hypo-osmolality and hyponatremia; L02.214 Cutaneous abscess of groin; E66.9 Obesity, unspecified; I49.9 Cardiac arrhythmia, unspecified; E11.65 Type 2 diabetes mellitus with hyperglycemia; K29.80 Duodenitis without bleeding; R13.10 Dysphagia, unspecified; K76.0 Fatty (change of) liver, not elsewhere classified; I48.0 Paroxysmal atrial fibrillation; K25.9 Gastric ulcer, unspecified as acute or chronic, without hemorrhage or perforation; D12.7 Benign neoplasm of rectosigmoid junction; K64.9 Unspecified hemorrhoids; D64.9 Anemia, unspecified; B95.1 Streptococcus, group B, as the cause of diseases classified elsewhere; B95.2 Enterococcus as the cause of diseases classified elsewhere; K57.30 Diverticulosis of large intestine without perforation or abscess without bleeding; K26.9 Duodenal ulcer, unspecified as acute or chronic, without hemorrhage or perforation; K44.9 Diaphragmatic hernia without obstruction or gangrene; Z87.81 Personal history of (healed) traumatic fracture; Z91.81 History of falling; Z90.49 Acquired absence of other specified parts of digestive tract; Z91.14 Patient's other noncompliance with medication regimen; Z79.4 Long term (current) use of insulin; Z79.899 Other long term (current) drug therapy; Z88.1 Allergy status to other antibiotic agents; Z88.2 Allergy status to sulfonamides; Z80.49 Family history of malignant neoplasm of other genital organs; Z23 Encounter for immunization

== ENCOUNTER → 2018-07-29 | Outpatient (CLI) | payer OTHER ==
[~2018-07-29] MED LIST: AUGMENTIN 875-1 EACH PO; CARAFATE 1 GM TA1 G1 PO; DOXYCYCLINE 10100 MG PO; GLUCOPHAGE1000 MG PO; GLUCOTROL5 MG PO; HYDROCODON-ACE1 EAC7 PO; PANTOPRAZOLE SO40 M1 PO; SORINE 80 MG TA80 M1 PO; SYNTHROID50 MCG PO; TRAMADOL 50 MG50 MG PO; TRAZODONE HCL50 MG PO; ZOCOR20 MG PO; ZOLOFT25 MG PO
--- NOTE | 2018-07-30 11:31 | CON ---
[facility] [address] [place] [address] CONSULTATION Name: LAQUITA BROOKS Room: [facility] ROSANA Christel#: [id number] Admission: 07/29/18 Attend Phys: Elsa Lin MD Discharge: Date of : 55 Report #: [id number] THIS REPORT FOR: //name// CC: Elsa Hanson DATE OF SERVICE: 07/29/2018 INFECTIOUS DISEASE CONSULTATION Seen [facility]. ATTENDING PHYSICIAN: Dr. Elsa Lin. HISTORY OF PRESENT ILLNESS: Here for followup hospitalization for skin and soft tissue infection with abscess in the left perineal area that did require operative debridement, now has residual wound. She notes there is moderate degree of pain and discomfort associated with it. She states it intermittently drains. She has not had significant systemic illness. No fevers or chills. Review of the culture primarily grew out group B strep. She has completed roughly 11 days of Augmentin therapy. PHYSICAL EXAMINATION: On examination, the wound overall appears improved. The degree of induration and inflammation has lessened, although there is still some [id number]-gr-[id number] degree. ASSESSMENT AND PLAN: Left perineal skin and soft tissue infection with abscess, post incision and drainage. We will continue the Augmentin an additional week for a total of 10 days from this point. We will see her back in 2 weeks' time. Continue wound care as prescribed by Dr. Lin. She is to call if problems. <ELECTRONICALLY SIGNED> By: Ramirez Martin MD 07/30/18 1131 1032 [id number] Martin MD /nt
== END ==
LOC: M.WC 09:00
DX: T81.31XA Disruption of external operation (surgical) wound, not elsewhere classified, initial encounter (principal); E11.9 Type 2 diabetes mellitus without complications; I48.91 Unspecified atrial fibrillation; F41.9 Anxiety disorder, unspecified; Z90.49 Acquired absence of other specified parts of digestive tract; Y92.89 Other specified places as the place of occurrence of the external cause; Y83.8 Other surgical procedures as the cause of abnormal reaction of the patient, or of later complication, without mention of misadventure at the time of the procedure

== ENCOUNTER → 2018-08-12 | Outpatient (CLI) | payer OTHER ==
--- NOTE | 2018-08-14 11:57 | CON ---
[facility] [address] [place] [address] CONSULTATION Name: LAQUITA BROOKS Room: [facility] ROSANA PaganArminda#: [id number] Admission: 08/12/18 Attend Phys: Elsa Lin MD Discharge: Date of : 55 Report #: [id number] THIS REPORT FOR: //name// CC: Elsa Hanson DATE OF SERVICE: 08/13/2018 ATTENDING PHYSICIAN: Dr. Elsa Lin. The patient is here for followup. She was hospitalized with skin and soft tissue infection, abscess, left inguinal site has got residual wound from previous debridement. She continues to show improvement. Completed prescribed course of antibiotics within the last few days. She notes much less pain. On examination, the degree of inflammation and induration is improved. She does have a small residual ulceration at the site of the incision. There is no apparent fluctuance. It has minimal type of palpable tenderness. Skin and soft tissue infection with abscess, left inguinal site. We will continue off antibiotics. She is to call if problems, I will be available. She is to continue wound care as prescribed by Dr. Lin. <ELECTRONICALLY SIGNED> By: Ramirez Martin MD 08/14/18 1157 1126 [id number] Martin MD /nt
== END ==
LOC: M.WC 01:11
DX: T81.31XD Disruption of external operation (surgical) wound, not elsewhere classified, subsequent encounter (principal); E11.9 Type 2 diabetes mellitus without complications; I48.91 Unspecified atrial fibrillation; Y83.8 Other surgical procedures as the cause of abnormal reaction of the patient, or of later complication, without mention of misadventure at the time of the procedure

== ENCOUNTER → 2018-08-26 | Outpatient (CLI) | payer OTHER | LOC: M.WC 00:31 | DX: T81.31XD Disruption of external operation (surgical) wound, not elsewhere classified, subsequent encounter (principal); E11.9 Type 2 diabetes mellitus without complications; I48.91 Unspecified atrial fibrillation; Y83.8 Other surgical procedures as the cause of abnormal reaction of the patient, or of later complication, without mention of misadventure at the time of the procedure ==